=== PATIENT | male | born 1975 | race Asian ===

== ENCOUNTER 2019-06-07 20:37 | Inpatient (IN) | payer OTHER ==
[~2019-06-07] VITALS: Ht 180.3 cm; Wt 125.0 kg
[2019-06-07 22:40] VITALS: BP 125/59; PULSE 77; RESP 18
[2019-06-07] MEDS ORDERED: ATEN-122 PO (22:45)
[2019-06-07] MEDS ORDERED: METF500T PO (22:45)
[2019-06-07] MEDS ORDERED: AMLO-218 PO (22:45)
[2019-06-07] MEDS ORDERED: ASPI-903 PO (22:45)
[2019-06-07] MEDS ORDERED: SIMV40TA2 PO (22:45)
[2019-06-07 23:02] VITALS: Ht 180.3 cm; Wt 125.0 kg
[2019-06-08 01:52] VITALS: BP 124/58; PULSE 73; RESP 19
[2019-06-08] MEDS ORDERED: NACL 0.9% 3 ML SYG IV SCH (02:00)
[2019-06-08] MEDS ORDERED: GLUCAGON 1 MG INJ IM PRN (02:00)
[2019-06-08] MEDS ORDERED: GLUCOSE GEL 15 GRAM TUBE BUCCAL PRN (02:00)
[2019-06-08] MEDS ORDERED: METHYLPREDNISOLONE 125 MG INJ IV ONE (02:00)
[2019-06-08] MEDS ORDERED: DEXTROSE 50% 50 ML SYRINGE IV PRN ×2 (02:00)
[2019-06-08] MEDS ORDERED: ONDANSETRON 4 MG INJ IV PRN (02:00)
[2019-06-08] MEDS ORDERED: ALBUTEROL/IPRATROPIUM (NEB) 3 ML AMP HHN PRN (02:00)
[2019-06-08] MEDS ORDERED: GLUCOSE GEL 15 GRAM TUBE PO PRN ×2 (02:00)
[2019-06-08] MEDS: ACCU-CHEK XX SCH (02:00)
[2019-06-08] MEDS: DEXTROSE 5%-0.45% NACL 1,000 ML IV SCH ×3 (02:04→18:17)
[2019-06-08] MEDS: morphine 2 MG INJ IV PRN ×4 (04:09→21:28)
--- NOTE | 2019-06-08 05:38 | HP ---
Date/Time of Note Date/Time of Note DATE: 06/08/19 TIME: 05:33 Assessment/Plan VTE Prophylaxis SCD applied (from Nsg): Yes Pharmacological prophylaxis: NA/contraindicated Pharm contraindication: bleeding Lines/Catheters IV Catheter Type (from Nrsg): Saline Lock Assessment/Plan Assessment/Plan 1. Rectal bleeding -Possibly from ulcerative colitis. CT at the outside facility shows diffuse colitis -will give a dose of steroid -GI consult -FOBT -IV antibiotic 2. Elevated transaminases, most likely 2/2 alcoholic liver disease: Patient is aware of this from the past and actually has been seeing GI for this -CT with moderate fatty liver -Check hep panel -GI to comment on this 3. Hypertension: BP is in acceptable range 4. Diabetes: Insulin while in-house 5. Alcohol Abuse: "quit" a week ago. discussed importance of abstinence 6. Dyslipidemia: Hold statin given elevated liver enzymes Results 24hrs Laboratory Tests Test 06/08/19 02:11 Bedside Glucose 107 HPI/ROS Admit Date/Time Admit Date/Time Jun 07, 2019 at 22:36 Hx of Present Illness Patient is a 43-year-old male with a history of hypertension, type 2 diabetes, dyslipidemia, alcohol abuse, possible cirrhosis who initially presented to [facility] complaining of bright red blood per rectum. Patient was transferred to [facility] for insurance reasons. Symptoms been going on for a 1 day. He initially saw blood on tissue. on next BM, "it was all blood". Denied hematemesis. At the outside hospital, vitals were stable. Hemoglobin 11. AST 367, ALT 319, alk phos 226, albumin 0.8 with a total protein of 6.6, INR 1.2, creatinine 1.46, sodium 132. CT abdomen/pelvis shows diffuse colitis and a moderate fatty liver. He stopped drinking a week ago. PMH/Family/Social Past Medical History Medical History: diabetes, high cholesterol, hypertension Medications Current Medications Dextrose/Sodium Chloride 1,000 ml @ 120 mls/hr Q8H20M IV Last administered on 06/08/19at 02:04; Admin Dose 120 MLS/HR; Start 06/08/19 at 01:37 IV Flush (NS 3 ml) 3 ml PER PROTOCOL IV ; Start 06/08/19 at 02:00 Ondansetron HCl (Zofran Inj) 4 mg Q6H PRN IV NAUSEA/VOMITING; Start 06/08/19 at 02:00 Morphine Sulfate (morphine) 2 mg Q4H PRN IV .SEVERE PAIN 7-10 Last administered on 06/08/19at 04:09; Admin Dose 2 MG; Start 06/08/19 at 02:00 Pantoprazole (Protonix Iv) 40 mg DAILY@0600,1800 IV ; Start 06/08/19 at 06:00 Albuterol/ Ipratropium (Duoneb) 3 ml Q2H RESP THERAPY PRN HHN SHORTNESS OF BREATH; Start 06/08/19 at 02:00 Diagnostic Test (Pha) (Accu-Chek) 1 ea 02 XX ; Start 06/08/19 at 02:00 Insulin Aspart (Novolog Insulin Pen) NOVOLOG *MILD* ALGORITHM WITH MEALS BEDTIME SC ; Start 06/08/19 at 08:00 Miscellaneous Information 1 ea NOTE XX ; Start 06/08/19 at 02:00 Glucose (Glutose) 15 gm Q15M PRN PO DECREASED GLUCOSE; Start 06/08/19 at 02:00 Glucose (Glutose) 22.5 gm Q15M PRN PO DECREASED GLUCOSE; Start 06/08/19 at 02:00 Dextrose (D50w Syringe) 25 ml Q15M PRN IV DECREASED GLUCOSE; Start 06/08/19 at 02:00 Dextrose (D50w Syringe) 50 ml Q15M PRN IV DECREASED GLUCOSE; Start 06/08/19 at 02:00 Glucagon (Glucagen) 1 mg Q15M PRN IM DECREASED GLUCOSE; Start 06/08/19 at 02:00 Glucose (Glutose) 15 gm Q15M PRN BUCCAL DECREASED GLUCOSE; Start 06/08/19 at 02:00 Coded Allergies: No Known Allergies (Verified Allergy, Unknown, 06/08/19) Past Surgical History Past Surgical Hx: other (See HPI) Family History Significant Family History: no pertinent family hx Social History Alcohol Use: other Smoking Status: Former smoker Drug Use: none Exam/Review of Systems Vital Signs Vitals Vital Signs Date Temp Pulse Resp B/P (MAP) Pulse Ox O2 O2 Flow FiO2 Time Delivery Rate 06/08/19 98.1 73 19 124/58 96 01:52 (80) Intake and Output 06/07/19 06/07/19 06/08/19 1515:00 23:00 07:00 IntakeIntake Total 360 ml BalanceBalance 360 ml Exam Constitutional: alert, oriented, well developed Head: normocephalic, atraumatic Eyes: EOMI, PERRL Respiratory: clear to auscultation, normal air movement Cardiovascular: regular rate and rhythm, nl pulses Gastrointestinal: soft, non-tender Extremities: normal pulses GUDELIA ESPINOZA MD Jun 08, 2019 05:38
[2019-06-08] MEDS: PANTOPRAZOLE 40 MG INJ IV SCH ×2 (06:30→18:09)
[2019-06-08 08:00] VITALS: BP 135/66; PULSE 75; RESP 18
[2019-06-08] MEDS: INSULIN ASPART [NOVOLOG] 3 ML PEN SC SCH ×4 (08:27→21:00)
[2019-06-08] MEDS: PIPER-TAZO 3.375 GM IV (PMX) 100 ML IVPB SCH ×3 (10:34→21:28)
[2019-06-08 14:10] VITALS: BP 140/81; PULSE 77; RESP 18
--- NOTE | 2019-06-08 14:20 | PN ---
Date/Time of Note Date/Time of Note DATE: 06/08/19 TIME: 14:20 Assessment/Plan VTE Prophylaxis Risk score (from Ns)>0 risk: 1 SCD applied (from Ns): No SCD contraindicated: low risk/ambulating Pharmacological prophylaxis: NA/contraindicated Pharm contraindication: bleeding Lines/Catheters IV C[facility] Type [facility]from [facility] Peripheral IV Assessment/Plan Hospital Course 43-year-old male with a history of hypertension, type 2 diabetes, dyslipidemia, alcohol abuse, possible cirrhosis who initially presented to [facility] complaining of bright red blood per rectum. 1. Rectal bleeding -CT at the outside facility shows diffuse colitis, INR was 1.2 normal platelets -GI consult -FOBT -IV antibiotic 2. Elevated transaminases, most likely 2/2 alcoholic liver disease: Patient is aware of this from the past and actually has been seeing GI for this -Hepatitis with elevated transaminases and hyperbilirubinemia -CT with moderate fatty liver -Check hep panel -GI to comment on this 3. Hypertension: BP is in acceptable range 4. Diabetes: Insulin while in-house 5. Alcohol Abuse: "quit" a week ago. discussed importance of abstinence 6. Dyslipidemia: Hold statin given elevated liver enzymes 7. Chronic hypochromic microcytic anemia 8. Hypophosphatemia 9. Hypomagnesemia 10. Hypokalemia Plan: patient enroute to CT with contrast, f/u findings Continue abx await GI review and recs replete electrolytes further interventions per clinical course. Result Diagram: 06/08/19 0538 06/08/19 0538 Results 24hrs Laboratory Tests Test 06/08/19 02:11 06/08/19 05:38 06/08/19 08:03 06/08/19 12:28 Bedside Glucose 107 211 206 White Blood Count 6.4 Red Blood Count 4.57 L Hemoglobin 10.6 L Hematocrit 33.7 L Mean Corpuscular 73.7 L Volume Mean Corpuscular 23.2 L Hemoglobin Mean Corpuscular 31.5 L Hemoglobin Concent Red Cell 20.5 H Distribution Width Platelet Count 214 Mean Platelet 10.1 Volume Immature 0.500 H Granulocytes % Neutrophils % 88.6 H Lymphocytes % 8.1 L Monocytes % 2.3 Eosinophils % 0.2 Basophils % 0.3 Nucleated Red 0.0 Blood Cells % Immature 0.030 Granulocytes # Neutrophils # 5.7 Lymphocytes # 0.5 L Monocytes # 0.2 L Eosinophils # 0.0 Basophils # 0.0 Nucleated Red 0.0 Blood Cells # Sodium Level 136 Potassium Level 3.2 L Chloride Level 98 Carbon Dioxide 29 Level Anion Gap 9 Blood Urea 12 Nitrogen Creatinine 1.11 Est Glomerular > 60 Filtrat Rate mL/min Glucose Level 187 Hemoglobin A1c 6.8 H Calcium Level 7.8 L Phosphorus Level 1.8 L Magnesium Level 1.2 L Total Bilirubin 4.2 H Direct Bilirubin 2.90 H Indirect Bilirubin 1.3 H Aspartate Amino 322 H Transf (AST/SGOT) Alanine 278 H Aminotransferase ( ALT/SGPT) Alkaline 227 H Phosphatase Total Protein 6.7 Albumin 3.2 L Globulin 3.50 H Albumin/Globulin 0.91 Ratio Hepatitis B NEGATIVE Surface Antigen Hepatitis B INDETERMINATE Surface Antibody Hepatitis C NEGATIVE Antibody Subjective 24 Hr Interval Summary Free Text/Dictation no new issues, enroute to radiology Exam/Review of Systems Exam Vitals Vital Signs Date Temp Pulse Resp B/P (MAP) Pulse Ox O2 O2 Flow FiO2 Time Delivery Rate 06/08/19 98.0 77 18 140/81 97 Room Air 14:10 (100) Intake and Output 06/07/19 06/07/19 06/08/19 1515:00 23:00 07:00 IntakeIntake Total 360 ml BalanceBalance 360 ml Exam Constitutional: alert, oriented, well developed Head: normocephalic, atraumatic Eyes: EOMI, PERRL Respiratory: clear to auscultation, normal air movement Cardiovascular: regular rate and rhythm, nl pulses Gastrointestinal: soft, non-tender Extremities: normal pulses Results Results 24hrs Laboratory Tests Test 06/08/19 02:11 06/08/19 05:38 06/08/19 08:03 06/08/19 12:28 Bedside Glucose 107 211 206 White Blood Count 6.4 Red Blood Count 4.57 L Hemoglobin 10.6 L Hematocrit 33.7 L Mean Corpuscular 73.7 L Volume Mean Corpuscular 23.2 L Hemoglobin Mean Corpuscular 31.5 L Hemoglobin Concent Red Cell 20.5 H Distribution Width Platelet Count 214 Mean Platelet 10.1 Volume Immature 0.500 H Granulocytes % Neutrophils % 88.6 H Lymphocytes % 8.1 L Monocytes % 2.3 Eosinophils % 0.2 Basophils % 0.3 Nucleated Red 0.0 Blood Cells % Immature 0.030 Granulocytes # Neutrophils # 5.7 Lymphocytes # 0.5 L Monocytes # 0.2 L Eosinophils # 0.0 Basophils # 0.0 Nucleated Red 0.0 Blood Cells # Sodium Level 136 Potassium Level 3.2 L Chloride Level 98 Carbon Dioxide 29 Level Anion Gap 9 Blood Urea 12 Nitrogen Creatinine 1.11 Est Glomerular > 60 Filtrat Rate mL/min Glucose Level 187 Hemoglobin A1c 6.8 H Calcium Level 7.8 L Phosphorus Level 1.8 L Magnesium Level 1.2 L Total Bilirubin 4.2 H Direct Bilirubin 2.90 H Indirect Bilirubin 1.3 H Aspartate Amino 322 H Transf (AST/SGOT) Alanine 278 H Aminotransferase ( ALT/SGPT) Alkaline 227 H Phosphatase Total Protein 6.7 Albumin 3.2 L Globulin 3.50 H Albumin/Globulin 0.91 Ratio Hepatitis B NEGATIVE Surface Antigen Hepatitis B INDETERMINATE Surface Antibody Hepatitis C NEGATIVE Antibody Medications Medication Current Medications Dextrose/Sodium Chloride 1,000 ml @ 120 mls/hr Q8H20M IV Last administered on 06/08/19at 10:34; Admin Dose 120 MLS/HR; Start 06/08/19 at 01:37 IV Flush (NS 3 ml) 3 ml PER PROTOCOL IV ; Start 06/08/19 at 02:00 Ondansetron HCl (Zofran Inj) 4 mg Q6H PRN IV NAUSEA/VOMITING; Start 06/08/19 at 02:00 Morphine Sulfate (morphine) 2 mg Q4H PRN IV .SEVERE PAIN 7-10 Last administered on 06/08/19at 12:37; Admin Dose 2 MG; Start 06/08/19 at 02:00 Pantoprazole (Protonix Iv) 40 mg DAILY@0600,1800 IV Last administered on 06/08/19at 06:30; Admin Dose 40 MG; Start 06/08/19 at 06:00 Albuterol/ Ipratropium (Duoneb) 3 ml Q2H RESP THERAPY PRN HHN SHORTNESS OF BREATH; Start 06/08/19 at 02:00 Diagnostic Test (Pha) (Accu-Chek) 1 ea 02 XX ; Start 06/08/19 at 02:00 Insulin Aspart (Novolog Insulin Pen) NOVOLOG *MILD* ALGORITHM WITH MEALS BEDTIME SC Last administered on 06/08/19at 12:39; Admin Dose 2 UNIT; Start 06/08/19 at 08:00 Miscellaneous Information 1 ea NOTE XX ; Start 06/08/19 at 02:00 Glucose (Glutose) 15 gm Q15M PRN PO DECREASED GLUCOSE; Start 06/08/19 at 02:00 Glucose (Glutose) 22.5 gm Q15M PRN PO DECREASED GLUCOSE; Start 06/08/19 at 02:00 Dextrose (D50w Syringe) 25 ml Q15M PRN IV DECREASED GLUCOSE; Start 06/08/19 at 02:00 Dextrose (D50w Syringe) 50 ml Q15M PRN IV DECREASED GLUCOSE; Start 06/08/19 at 02:00 Glucagon (Glucagen) 1 mg Q15M PRN IM DECREASED GLUCOSE; Start 06/08/19 at 02:00 Glucose (Glutose) 15 gm Q15M PRN BUCCAL DECREASED GLUCOSE; Start 06/08/19 at 02:00 Piperacillin Sod/ Tazobactam Sod 100 ml @ 200 mls/hr Q6 IVPB Last administered on 06/08/19at 10:34; Admin Dose 200 MLS/HR; Start 06/08/19 at 09:00 Magnesium Sulfate 100 ml @ 25 mls/hr ONCE ONCE IVPB ; Start 06/08/19 at 14:30; Stop 06/08/19 at 18:29 Potassium Phosphate 20 meq/ Sodium Chloride 254.5455 ml @ 63.636 m... ONCE ONCE IVPB ; Start 06/08/19 at 14:30; Stop 06/08/19 at 18:29 TALA AMADO Jun 08, 2019 14:20
[2019-06-08] MEDS ORDERED: SOD CHLORIDE 0.9% 100 ML ONE (14:24)
[2019-06-08] MEDS ORDERED: IODIXANOL LOCM 100 ML BTL ONE (14:24)
[2019-06-08] MEDS ORDERED: MAGNESIUM SULFATE 4 GM/100 ML 100 ML IVPB ONE (14:30)
[2019-06-08] MEDS ORDERED: POTASSIUM PHOSPHATE 20 MEQ in SOD CHLORIDE 0.9% 250 ML IVPB ONE (14:30)
[2019-06-08 20:10] VITALS: BP 135/80; PULSE 70; RESP 18
[2019-06-09] MEDS: ACCU-CHEK XX SCH (01:38)
[2019-06-09] MEDS: DEXTROSE 5%-0.45% NACL 1,000 ML IV SCH ×3 (01:39→13:51)
[2019-06-09 01:50] VITALS: BP 135/68; PULSE 66; RESP 18
[2019-06-09] MEDS: PIPER-TAZO 3.375 GM IV (PMX) 100 ML IVPB SCH ×6 (02:33→23:33)
[2019-06-09] MEDS: morphine 2 MG INJ IV PRN ×2 (02:38→16:16)
[2019-06-09] MEDS: PANTOPRAZOLE 40 MG INJ IV SCH ×2 (06:05→18:19)
[2019-06-09 07:30] VITALS: BP 122/68; PULSE 73; RESP 18
[2019-06-09] MEDS: INSULIN ASPART [NOVOLOG] 3 ML PEN SC SCH ×5 (09:45→23:41)
[2019-06-09] MEDS ORDERED: BISACODYL (EC) 5 MG TAB PO ONE ×2 (11:30→12:00)
--- NOTE | 2019-06-09 11:31 | CONS ---
Assessment/Plan Assessment/Plan Hospital Course (Demo Recall) Summary Assessment and Plan: Assessment: Hematochezia Transaminitis with direct hyperbilirubinemia -Likely alcoholic hepatitis will order PT/INR-to assess discriminant function History of excessive alcohol use 3-4 shots per day x10 years -Alcoholic beverage was Saturday06/06/19 HTN Dyslipidemia Diabetes mellitus Plan: MRCP-rule out common bile duct obstruction versus hepatocellular disease Clear liquid diet today N.p.o. after midnight EGD/colonoscopy tomorrow Endoscopy - risks/benefits/alternatives/indications of procedure and sedation/anesthesia discussed with patient who states understanding and gives informed consent to proceed. Patient seen in collaboration with Dr. Hedrick CC: OLIVIA HEDRICK MD ; Consultation Date/Type/Reason Admit Date/Time Jun 07, 2019 at 22:36 Date of Consultation: Jun 09, 2019 Type of Consult GI Reason for Consultation Transaminitis with direct hyperbilirubinemia and hematochezia Date/Time of Note DATE: 06/09/19 TIME: 11:16 Hx of Present Illness A 43-year-old male with past medical history of hypertension, diabetes mellitus, dyslipidemia, excessive alcohol use 3-4 shots per day x10+ years and to to an outside hospital with complaints of hematochezia. He denies nausea/vomiting, hematemesis, or melena. There is no epigastric or other abdominal pain patient does complain of some pyrosis. Labs obtained at outside facility show a microcytic anemia, mild hemoglobin 11.1 platelet count of 255 normal WBC of 6.95. Imaging was obtained at the outside facility CT abdomen pelvis without contrast shows diffuse colitis no other acute abnormality of the abdomen or pelvis, moderate fatty liver, mild hepatomegaly. Patient states he previously had a colonoscopy about 2 years ago believes it was normal. He does note history of elevated LFTs and periodically sees Dr. Cj Wang -[employer]. He was transferred to [facility] after being deemed stable for insurance reasons. Here labs were obtained hemoglobin continues to trend down hemoglobin this morning noted to be 9.8 with MCV of 74.9 and MCH of 23.4. Serology was obtained patient is negative for hepatitis B surface antigen, hepatitis B surface antibody is indeterminate and is negative for hepatitis C antibody additionally stool for OB is positive discussed plan for repeat colonoscopy given underlying liver disease we will proceed with EGD as well to rule out esophageal varices versus other. I reviewed risk/benefits age and procedure patient verbalized understanding is agreeable. Review of Systems: A 12 system, review was conducted and is negative except as noted in the HPI or here. Past Medical History Medical History: diabetes, high cholesterol, hypertension Home Meds Reported Medications Metformin Hcl (Glucophage) 500 Mg Tablet, 500 MG PO WITH MEALS, #90 TAB 06/07/19 Simvastatin* (Zocor*) 40 Mg Tablet, 40 MG PO QHS, #30 TAB 06/07/19 Atenolol* (Tenormin*) 50 Mg Tablet, 50 MG PO DAILY, #30 TAB 06/07/19 Amlodipine Besylate* (Norvasc*) 10 Mg Tablet, 10 MG PO DAILY, TAB 06/07/19 Aspirin* (Aspirin* Chew) 81 Mg Tab.chew, 81 MG PO DAILY, TAB.CHEW 06/07/19 Medications Current Medications Dextrose/Sodium Chloride 1,000 ml @ 120 mls/hr Q8H20M IV Last administered on 06/08/19at 10:34; Admin Dose 120 MLS/HR; Start 06/08/19 at 01:37 IV Flush (NS 3 ml) 3 ml PER PROTOCOL IV ; Start 06/08/19 at 02:00 Ondansetron HCl (Zofran Inj) 4 mg Q6H PRN IV NAUSEA/VOMITING; Start 06/08/19 at 02:00 Morphine Sulfate (morphine) 2 mg Q4H PRN IV .SEVERE PAIN 7-10 Last administered on 06/09/19at 02:38; Admin Dose 2 MG; Start 06/08/19 at 02:00 Pantoprazole (Protonix Iv) 40 mg DAILY@0600,1800 IV Last administered on 06/09/19at 06:05; Admin Dose 40 MG; Start 06/08/19 at 06:00 Albuterol/ Ipratropium (Duoneb) 3 ml Q2H RESP THERAPY PRN HHN SHORTNESS OF BREATH; Start 06/08/19 at 02:00 Diagnostic Test (Pha) (Accu-Chek) 1 ea 02 XX ; Start 06/08/19 at 02:00 Insulin Aspart (Novolog Insulin Pen) NOVOLOG *MILD* ALGORITHM WITH MEALS BEDTIME SC Last administered on 06/08/19at 18:09; Admin Dose 1 UNIT; Start 06/08/19 at 08:00 Miscellaneous Information 1 ea NOTE XX ; Start 06/08/19 at 02:00 Glucose (Glutose) 15 gm Q15M PRN PO DECREASED GLUCOSE; Start 06/08/19 at 02:00 Glucose (Glutose) 22.5 gm Q15M PRN PO DECREASED GLUCOSE; Start 06/08/19 at 02:00 Dextrose (D50w Syringe) 25 ml Q15M PRN IV DECREASED GLUCOSE; Start 06/08/19 at 02:00 Dextrose (D50w Syringe) 50 ml Q15M PRN IV DECREASED GLUCOSE; Start 06/08/19 at 02:00 Glucagon (Glucagen) 1 mg Q15M PRN IM DECREASED GLUCOSE; Start 06/08/19 at 02:00 Glucose (Glutose) 15 gm Q15M PRN BUCCAL DECREASED GLUCOSE; Start 06/08/19 at 02:00 Piperacillin Sod/ Tazobactam Sod 100 ml @ 200 mls/hr Q6H IVPB Last administered on 06/09/19at 09:39; Admin Dose 200 MLS/HR; Start 06/09/19 at 03:00 Allergies: Coded Allergies: No Known Allergies (Verified Allergy, Unknown, 06/08/19) Past Surgical History Past Surgical Hx: other (See HPI) Social History Alcohol Use: other Smoking Status: Former smoker Drug Use: none Exam/Review of Systems Exam Vitals Vital Signs Date Temp Pulse Resp B/P (MAP) Pulse Ox O2 O2 Flow FiO2 Time Delivery Rate 06/09/19 98.4 73 18 122/68 98 07:30 (86) 06/08/19 30 22:01 06/08/19 Room Air 14:10 Intake and Output 06/08/19 06/08/19 06/09/19 1515:00 23:00 07:00 IntakeIntake Total 740 ml 200 ml 254.55 ml BalanceBalance 740 ml 200 ml 254.55 ml Exam PHYSICAL EXAMINATION: GENERAL: Alert & oriented x 3, in no acute distress SKIN: No lesions HEAD: Normocephalic, atraumatic, no tenderness. EYES: Pupils equal reactive to light and accommodation, no discharge. EARS/NOSE AND THROAT: Ears normal. NECK: Supple, no masses. CHEST: Inspection within normal limits. CARDIOVASCULAR: Heart: Regular rate and rhythm RESPIRATORY: Lungs clear to auscultation and percussion, no wheezing, no rubs GASTROINTESTINAL AND LIVER: Abdomen: Soft, non tenderness, non-distended, no organomegaly,normoactive bowel sounds. Rectal: Deferred. EXTREMITIES: No cyanosis, clubbing or edema. Results Result Diagram: 06/09/19 0605 06/09/19 0604 Results 24hrs Laboratory Tests Test 06/08/19 12:28 06/08/19 18:04 06/08/19 21:39 06/08/19 22:00 Bedside Glucose 206 165 153 Stool Occult Blood POSITIVE Test 06/09/19 01:34 06/09/19 06:04 06/09/19 06:05 06/09/19 09:44 Bedside Glucose 127 123 119 Sodium Level 140 Potassium Level 3.3 L Chloride Level 102 Carbon Dioxide Level 29 Anion Gap 9 Blood Urea Nitrogen 7 Creatinine 0.95 Est Glomerular > 60 Filtrat Rate mL/min Glucose Level 115 # Calcium Level 8.1 L Phosphorus Level 3.7 Magnesium Level 1.9 Triglycerides Level 391 H Cholesterol Level 249 H LDL Cholesterol, 155 Calculated HDL Cholesterol 16 L Cholesterol/HDL 15.5 Ratio White Blood Count 9.3 # Red Blood Count 4.19 L Hemoglobin 9.8 L Hematocrit 31.4 L Mean Corpuscular 74.9 L Volume Mean Corpuscular 23.4 L Hemoglobin Mean Corpuscular 31.2 L Hemoglobin Concent Red Cell 21.0 H Distribution Width Platelet Count 194 Mean Platelet Volume 10.1 Immature 0.600 H Granulocytes % Neutrophils % 79.9 H Lymphocytes % 12.9 L Monocytes % 6.5 Eosinophils % 0.0 Basophils % 0.1 Nucleated Red Blood 0.0 Cells % Immature 0.060 H Granulocytes # Neutrophils # 7.5 Lymphocytes # 1.2 Monocytes # 0.6 Eosinophils # 0.0 Basophils # 0.0 Nucleated Red Blood 0.0 Cells # Iron Level 110 Total Iron Binding 338 Capacity Percent Iron 33 Saturation Medications Medication Current Medications Dextrose/Sodium Chloride 1,000 ml @ 120 mls/hr Q8H20M IV Last administered on 06/08/19at 10:34; Admin Dose 120 MLS/HR; Start 06/08/19 at 01:37 IV Flush (NS 3 ml) 3 ml PER PROTOCOL IV ; Start 06/08/19 at 02:00 Ondansetron HCl (Zofran Inj) 4 mg Q6H PRN IV NAUSEA/VOMITING; Start 06/08/19 at 02:00 Morphine Sulfate (morphine) 2 mg Q4H PRN IV .SEVERE PAIN 7-10 Last administered on 06/09/19at 02:38; Admin Dose 2 MG; Start 06/08/19 at 02:00 Pantoprazole (Protonix Iv) 40 mg DAILY@0600,1800 IV Last administered on 06/09/19at 06:05; Admin Dose 40 MG; Start 06/08/19 at 06:00 Albuterol/ Ipratropium (Duoneb) 3 ml Q2H RESP THERAPY PRN HHN SHORTNESS OF BREATH; Start 06/08/19 at 02:00 Diagnostic Test (Pha) (Accu-Chek) 1 ea 02 XX ; Start 06/08/19 at 02:00 Insulin Aspart (Novolog Insulin Pen) NOVOLOG *MILD* ALGORITHM WITH MEALS BEDTIME SC Last administered on 06/08/19at 18:09; Admin Dose 1 UNIT; Start 06/08/19 at 08:00 Miscellaneous Information 1 ea NOTE XX ; Start 06/08/19 at 02:00 Glucose (Glutose) 15 gm Q15M PRN PO DECREASED GLUCOSE; Start 06/08/19 at 02:00 Glucose (Glutose) 22.5 gm Q15M PRN PO DECREASED GLUCOSE; Start 06/08/19 at 02:00 Dextrose (D50w Syringe) 25 ml Q15M PRN IV DECREASED GLUCOSE; Start 06/08/19 at 02:00 Dextrose (D50w Syringe) 50 ml Q15M PRN IV DECREASED GLUCOSE; Start 06/08/19 at 02:00 Glucagon (Glucagen) 1 mg Q15M PRN IM DECREASED GLUCOSE; Start 06/08/19 at 02:00 Glucose (Glutose) 15 gm Q15M PRN BUCCAL DECREASED GLUCOSE; Start 06/08/19 at 02:00 Piperacillin Sod/ Tazobactam Sod 100 ml @ 200 mls/hr Q6H IVPB Last administered on 06/09/19at 09:39; Admin Dose 200 MLS/HR; Start 06/09/19 at 03:00 ELEANOR CURRY Jun 09, 2019 11:26
[2019-06-09 14:29] VITALS: BP 145/75; PULSE 71; RESP 18
--- NOTE | 2019-06-09 16:29 | PN ---
Date/Time of Note Date/Time of Note DATE: 06/09/19 TIME: 16:17 Assessment/Plan VTE Prophylaxis Risk score (from Nsg)>0 risk: 3 Pharmacological prophylaxis: NA/contraindicated Pharm contraindication: bleeding Lines/Catheters IV Catheter Type (from Nrsg): Peripheral IV Assessment/Plan Hospital Course 43-year-old male with a history of hypertension, type 2 diabetes, dyslipidemia, alcohol abuse, possible cirrhosis who initially presented to [facility] complaining of bright red blood per rectum. 1. Rectal bleeding / Hematochezia -Initial Ct concerning for colitis, repeat here shows diffuse lymphadenopathy but normal bowels -planned for colonoscopy tomorrow -appreciate GI input, CEA? 2. Elevated transaminases, most likely 2/2 alcoholic liver disease: Patient is aware of this from the past and actually has been seeing GI for this -Hepatitis with elevated transaminases and hyperbilirubinemia -CT with moderate fatty liver, also seen on [facility] concerning also for hepatocellular disease -Planned for MRCP per GI 3. Hypertension: BP is in acceptable range 4. Diabetes: Insulin while in-house 5. Alcohol Abuse: "quit" a week ago. discussed importance of abstinence, reinforced 6. Dyslipidemia: Hold statin given elevated liver enzymes 7. Chronic hypochromic microcytic anemia Plan: Continue abx appreciate GI review and recs replete electrolytes further interventions per clinical course. Result Diagram: 06/09/19 0605 06/09/19 0604 Results 24hrs Laboratory Tests Test 06/08/19 18:04 06/08/19 21:39 06/08/19 22:00 06/09/19 01:34 Bedside Glucose 165 153 127 Stool Occult Blood POSITIVE Test 06/09/19 06:04 06/09/19 06:05 06/09/19 09:44 06/09/19 12:33 Sodium Level 140 Potassium Level 3.3 L Chloride Level 102 Carbon Dioxide Level 29 Anion Gap 9 Blood Urea Nitrogen 7 Creatinine 0.95 Est Glomerular > 60 Filtrat Rate mL/min Glucose Level 115 # Bedside Glucose 123 119 Calcium Level 8.1 L Phosphorus Level 3.7 Magnesium Level 1.9 Triglycerides Level 391 H Cholesterol Level 249 H LDL Cholesterol, 155 Calculated HDL Cholesterol 16 L Cholesterol/HDL 15.5 Ratio White Blood Count 9.3 # Red Blood Count 4.19 L Hemoglobin 9.8 L Hematocrit 31.4 L Mean Corpuscular 74.9 L Volume Mean Corpuscular 23.4 L Hemoglobin Mean Corpuscular 31.2 L Hemoglobin Concent Red Cell 21.0 H Distribution Width Platelet Count 194 Mean Platelet Volume 10.1 Immature 0.600 H Granulocytes % Neutrophils % 79.9 H Lymphocytes % 12.9 L Monocytes % 6.5 Eosinophils % 0.0 Basophils % 0.1 Nucleated Red Blood 0.0 Cells % Immature 0.060 H Granulocytes # Neutrophils # 7.5 Lymphocytes # 1.2 Monocytes # 0.6 Eosinophils # 0.0 Basophils # 0.0 Nucleated Red Blood 0.0 Cells # Iron Level 110 Total Iron Binding 338 Capacity Percent Iron 33 Saturation Prothrombin Time 14.6 Prothrombin Time 1.1 Ratio INR International 1.13 Normalized Ratio Test 06/09/19 14:02 Bedside Glucose 109 Subjective 24 Hr Interval Summary Free Text/Dictation no new complaints, Exam/Review of Systems Exam Vitals Vital Signs Date Temp Pulse Resp B/P (MAP) Pulse Ox O2 O2 Flow FiO2 Time Delivery Rate 06/09/19 98.5 71 18 145/75 95 14:29 (98) 06/08/19 30 22:01 06/08/19 Room Air 14:10 Intake and Output 06/08/19 06/08/19 06/09/19 1515:00 23:00 07:00 IntakeIntake Total 740 ml 200 ml 254.55 ml BalanceBalance 740 ml 200 ml 254.55 ml Exam Constitutional: alert, oriented Head: atraumatic, normocephalic Neck: non-tender, supple Respiratory: clear to auscultation Cardiovascular: regular rate and rhythm Gastrointestinal: S/ NT / ND / +BS Extremities: no edema, good radial pulses Results Results 24hrs Laboratory Tests Test 06/08/19 18:04 06/08/19 21:39 06/08/19 22:00 06/09/19 01:34 Bedside Glucose 165 153 127 Stool Occult Blood POSITIVE Test 06/09/19 06:04 06/09/19 06:05 06/09/19 09:44 06/09/19 12:33 Sodium Level 140 Potassium Level 3.3 L Chloride Level 102 Carbon Dioxide Level 29 Anion Gap 9 Blood Urea Nitrogen 7 Creatinine 0.95 Est Glomerular > 60 Filtrat Rate mL/min Glucose Level 115 # Bedside Glucose 123 119 Calcium Level 8.1 L Phosphorus Level 3.7 Magnesium Level 1.9 Triglycerides Level 391 H Cholesterol Level 249 H LDL Cholesterol, 155 Calculated HDL Cholesterol 16 L Cholesterol/HDL 15.5 Ratio White Blood Count 9.3 # Red Blood Count 4.19 L Hemoglobin 9.8 L Hematocrit 31.4 L Mean Corpuscular 74.9 L Volume Mean Corpuscular 23.4 L Hemoglobin Mean Corpuscular 31.2 L Hemoglobin Concent Red Cell 21.0 H Distribution Width Platelet Count 194 Mean Platelet Volume 10.1 Immature 0.600 H Granulocytes % Neutrophils % 79.9 H Lymphocytes % 12.9 L Monocytes % 6.5 Eosinophils % 0.0 Basophils % 0.1 Nucleated Red Blood 0.0 Cells % Immature 0.060 H Granulocytes # Neutrophils # 7.5 Lymphocytes # 1.2 Monocytes # 0.6 Eosinophils # 0.0 Basophils # 0.0 Nucleated Red Blood 0.0 Cells # Iron Level 110 Total Iron Binding 338 Capacity Percent Iron 33 Saturation Prothrombin Time 14.6 Prothrombin Time 1.1 Ratio INR International 1.13 Normalized Ratio Test 06/09/19 14:02 Bedside Glucose 109 Imaging Imaging PROCEDURE: CT Abdomen and Pelvis with contrast. CLINICAL INDICATION: Abdomen and pelvis pain. TECHNIQUE: CT scan of the abdomen and pelvis with contrast was performed. The patient was scanned following the uncomplicated intravenous administration of 100 ml of Omnipaque-300. Coronal and sagittal reformatted images were obtained from the axial source images. Images were reviewed on a high-resolution PACS workstation. Total exam DLP is 1556 mGy-cm. CTDIvol is 23 mGy. One or more of the following dose reduction techniques were used: Automated exposure control, adjustment of the mA and/or kV according to patient size, use of iterative reconstruction technique. DICOM images are available. COMPARISON: None. FINDINGS: there is bilateral lung base atelectasis versus scarring. There is no pleural effusion there is hepatic steatosis. There is no focal hepatic lesion. The gallbladder and bile ducts are normal. The spleen is normal in size. There is no focal splenic lesion. Both adrenals are normal with no enlargement or mass. The pancreas is unremarkable with no mass or evidence of pancreatitis. Both kidneys demonstrate normal contrast enhancement. there is a 1.3 cm hypodense lesion arising from the lower pole of the right kidney. The abdominal aorta is not dilated. There are multiple shotty sub centimeter retroperitoneal lymph nodes. There is no pelvic lymphadenopathy or mass. The bladder and distal ureters are normal. The periappendiceal region is unremarkable with no evidence of appendicitis. The bowel and mesentery are normal. There is no free fluid or free gas. There are degenerative changes of the spine. There is bilateral groin lymphadenopathy. An index left groin lymph node measures 1.5 cm. There are patulous fat containing bilateral inguinal rings. There is mild anasarca. IMPRESSION: 1. Hepatic steatosis. 2. 1.3 cm hypodense lesion arising from the lower pole of the right kidney. This may represent a cyst. However, follow-up is recommended to exclude neoplasm. 3. There are multiple nonspecific shotty sub centimeter retroperitoneal lymph nodes. 4. There is bilateral groin lymphadenopathy. An index left groin lymph node measures 1.5 cm. Follow-up to exclude infectious, inflammatory, or neoplastic process. 5. There are patulous fat containing bilateral inguinal rings. 6. There is mild anasarca. RPTAT: QQ Physician Steve Date Time Electronically viewed and signed by Physician Steve on 06/08/2019 16:10 RD/ CC: GUDELIA ESPINOZA MD [id number] Medications Medication Current Medications Dextrose/Sodium Chloride 1,000 ml @ 120 mls/hr Q8H20M IV Last administered on 06/09/19at 13:51; Admin Dose 120 MLS/HR; Start 06/08/19 at 01:37 IV Flush (NS 3 ml) 3 ml PER PROTOCOL IV ; Start 06/08/19 at 02:00 Ondansetron HCl (Zofran Inj) 4 mg Q6H PRN IV NAUSEA/VOMITING; Start 06/08/19 at 02:00 Morphine Sulfate (morphine) 2 mg Q4H PRN IV .SEVERE PAIN 7-10 Last administered on 06/09/19at 16:16; Admin Dose 2 MG; Start 06/08/19 at 02:00 Pantoprazole (Protonix Iv) 40 mg DAILY@0600,1800 IV Last administered on 06/09/19at 06:05; Admin Dose 40 MG; Start 06/08/19 at 06:00 Albuterol/ Ipratropium (Duoneb) 3 ml Q2H RESP THERAPY PRN HHN SHORTNESS OF BREATH; Start 06/08/19 at 02:00 Diagnostic Test (Pha) (Accu-Chek) 1 ea 02 XX ; Start 06/08/19 at 02:00 Insulin Aspart (Novolog Insulin Pen) NOVOLOG *MILD* ALGORITHM WITH MEALS BEDTIME SC Last administered on 06/08/19at 18:09; Admin Dose 1 UNIT; Start 06/08/19 at 08:00 Miscellaneous Information 1 ea NOTE XX ; Start 06/08/19 at 02:00 Glucose (Glutose) 15 gm Q15M PRN PO DECREASED GLUCOSE; Start 06/08/19 at 02:00 Glucose (Glutose) 22.5 gm Q15M PRN PO DECREASED GLUCOSE; Start 06/08/19 at 02:00 Dextrose (D50w Syringe) 25 ml Q15M PRN IV DECREASED GLUCOSE; Start 06/08/19 at 02:00 Dextrose (D50w Syringe) 50 ml Q15M PRN IV DECREASED GLUCOSE; Start 06/08/19 at 02:00 Glucagon (Glucagen) 1 mg Q15M PRN IM DECREASED GLUCOSE; Start 06/08/19 at 02:00 Glucose (Glutose) 15 gm Q15M PRN BUCCAL DECREASED GLUCOSE; Start 06/08/19 at 02:00 Piperacillin Sod/ Tazobactam Sod 100 ml @ 200 mls/hr Q6H IVPB Last administered on 06/09/19at 15:33; Admin Dose 200 MLS/HR; Start 06/09/19 at 03:00 Magnesium Citrate (Citroma) 300 ml ONCE ONCE PO ; Start 06/09/19 at 17:30; Stop 06/09/19 at 17:31 Polyethylene Glycol (Miralax) 119 gm ONCE ONCE PO ; Start 06/09/19 at 18:30; Stop 06/09/19 at 18:31 Polyethylene Glycol (Miralax) 119 gm 2ND DOSE (GI PREP) ONCE PO ; Start 06/10/19 at 06:00; Stop 06/10/19 at 06:01 Bisacodyl (Dulcolax) 10 mg 2ND DOSE (GI PREP) ONCE PO ; Start 06/10/19 at 08:00; Stop 06/10/19 at 08:01 TALA AMADO Jun 09, 2019 16:28
[2019-06-09] MEDS ORDERED: POTASSIUM CHLORIDE 100 ML IVPB ONE (16:30)
[2019-06-09] MEDS ORDERED: MAGNESIUM CITRATE 300 ML BTL PO ONE ×2 (17:30)
--- NOTE | 2019-06-09 17:32 | PREAC ---
Date/Time of Note Date/Time of Note DATE: 06/09/19 TIME: 17:31 Anesthesia Eval and Record Evaluation Time Pre-Procedure Interview DATE: 06/09/19 TIME: 17:31 Age 43 Sex male NPO: 8 hrs Preoperative diagnosis Rectal bleeding Planned procedure EGD / colonoscopy Past Medical History Past Medical History: Includes Cardio: HTN, Dyslipidemia Endo: Diabetes Hepatic: Alcohol abuse GI: Morbid obesity Surgery & Anesthesia Issues No known issue Meds Anticoagulation: No Beta Janna within 24 hr: No Reason Beta Janna not given: Pt. not on B-Janna Reported Medications Metformin Hcl (Glucophage) 500 Mg Tablet, 500 MG PO WITH MEALS, #90 TAB 06/07/19 Simvastatin* (Zocor*) 40 Mg Tablet, 40 MG PO QHS, #30 TAB 06/07/19 Atenolol* (Tenormin*) 50 Mg Tablet, 50 MG PO DAILY, #30 TAB 06/07/19 Amlodipine Besylate* (Norvasc*) 10 Mg Tablet, 10 MG PO DAILY, TAB 06/07/19 Aspirin* (Aspirin* Chew) 81 Mg Tab.chew, 81 MG PO DAILY, TAB.CHEW 06/07/19 Current Medications Dextrose/Sodium Chloride 1,000 ml @ 120 mls/hr Q8H20M IV Last administered on 06/09/19at 13:51; Admin Dose 120 MLS/HR; Start 06/08/19 at 01:37 IV Flush (NS 3 ml) 3 ml PER PROTOCOL IV ; Start 06/08/19 at 02:00 Ondansetron HCl (Zofran Inj) 4 mg Q6H PRN IV NAUSEA/VOMITING; Start 06/08/19 at 02:00 Morphine Sulfate (morphine) 2 mg Q4H PRN IV .SEVERE PAIN 7-10 Last administered on 06/09/19at 16:16; Admin Dose 2 MG; Start 06/08/19 at 02:00 Pantoprazole (Protonix Iv) 40 mg DAILY@0600,1800 IV Last administered on 06/09/19at 06:05; Admin Dose 40 MG; Start 06/08/19 at 06:00 Albuterol/ Ipratropium (Duoneb) 3 ml Q2H RESP THERAPY PRN HHN SHORTNESS OF BREATH; Start 06/08/19 at 02:00 Diagnostic Test (Pha) (Accu-Chek) 1 ea 02 XX ; Start 06/08/19 at 02:00 Insulin Aspart (Novolog Insulin Pen) NOVOLOG *MILD* ALGORITHM WITH MEALS BEDTIME SC Last administered on 06/08/19at 18:09; Admin Dose 1 UNIT; Start 06/08/19 at 08:00 Miscellaneous Information 1 ea NOTE XX ; Start 06/08/19 at 02:00 Glucose (Glutose) 15 gm Q15M PRN PO DECREASED GLUCOSE; Start 06/08/19 at 02:00 Glucose (Glutose) 22.5 gm Q15M PRN PO DECREASED GLUCOSE; Start 06/08/19 at 02:00 Dextrose (D50w Syringe) 25 ml Q15M PRN IV DECREASED GLUCOSE; Start 06/08/19 at 02:00 Dextrose (D50w Syringe) 50 ml Q15M PRN IV DECREASED GLUCOSE; Start 06/08/19 at 02:00 Glucagon (Glucagen) 1 mg Q15M PRN IM DECREASED GLUCOSE; Start 06/08/19 at 02:00 Glucose (Glutose) 15 gm Q15M PRN BUCCAL DECREASED GLUCOSE; Start 06/08/19 at 02:00 Piperacillin Sod/ Tazobactam Sod 100 ml @ 200 mls/hr Q6H IVPB Last administered on 06/09/19at 15:33; Admin Dose 200 MLS/HR; Start 06/09/19 at 03:00 Magnesium Citrate (Citroma) 300 ml ONCE ONCE PO ; Start 06/09/19 at 17:30; Sto p 06/09/19 at 17:31 Polyethylene Glycol (Miralax) 119 gm ONCE ONCE PO ; Start 06/09/19 at 18:30; Stop 06/09/19 at 18:31 Polyethylene Glycol (Miralax) 119 gm 2ND DOSE (GI PREP) ONCE PO ; Start 06/10/19 at 06:00; Stop 06/10/19 at 06:01 Bisacodyl (Dulcolax) 10 mg 2ND DOSE (GI PREP) ONCE PO ; Start 06/10/19 at 08:00; Stop 06/10/19 at 08:01 Potassium Chloride 100 ml @ 50 mls/hr ONCE ONCE IVPB ; Start 06/09/19 at 16:30; Stop 06/09/19 at 18:29 Meds reviewed: Yes Allergies Coded Allergies: No Known Allergies (Verified Allergy, Unknown, 06/08/19) Allergies Reviewed: Yes Labs/Studies Labs Reviewed: Reviewed by anesthesiologist Result Diagram: 06/09/19 0605 06/09/19 0604 Laboratory Tests 06/09/19 06:04 06/09/19 06:05 test: N/A Pre-procedure Exam Last vitals Vital Signs Date Temp Pulse Resp B/P (MAP) Pulse Ox O2 O2 Flow FiO2 Time Delivery Rate 06/09/19 98.5 71 18 145/75 95 14:29 (98) 06/08/19 30 22:01 06/08/19 Room Air 14:10 Airway: Adequate mouth opening Mallampati: Mallampati II Teeth: Normal Lung: Normal Heart: Normal ASA Physical Status ASA physical status: 3 Emergency: None Planned Anesthetic General/MAC: MAC Pre-operative Attestations Prior to commencing anesthesia and surgery, the patient was re-evaluated, there was verification of: *The patient's identity *The results of appropriate recent lab work and preoperative vital signs *The above evaluation not changing prior to induction *Anesthetic plan, risk benefits, alternative and complications discussed with patient/family; questions answered; patient/family understands, accepts and wishes to proceed. YULY ONEILL Jun 09, 2019 17:32
[2019-06-09] MEDS: POLYETHYLENE GLYCOL 3350 119 GM POWDER PO ONE (18:25)
[2019-06-09] MEDS ORDERED: POLYETHYLENE GLYCOL 3350 119 GM POWDER PO ONE ×2 (18:30)
[2019-06-09 20:22] VITALS: BP 137/77; PULSE 67; RESP 18
[2019-06-09] MEDS ORDERED: POTASSIUM CHLORIDE (SR) 20 MEQ TAB PO STA (23:10)
[2019-06-10] VITALS (8 sets, daily range): BP systolic 103–151; BP diastolic 51–93; PULSE 63–80; RESP 16–32
[2019-06-10] MEDS: ACCU-CHEK XX SCH (01:05)
[2019-06-10] MEDS: PIPER-TAZO 3.375 GM IV (PMX) 100 ML IVPB SCH ×4 (02:33→20:48)
[2019-06-10] MEDS: DEXTROSE 5%-0.45% NACL 1,000 ML IV SCH ×2 (02:33→11:41)
[2019-06-10] MEDS: INSULIN ASPART [NOVOLOG] 3 ML PEN SC SCH ×5 (04:13→20:48)
[2019-06-10] MEDS: PANTOPRAZOLE 40 MG INJ IV SCH ×2 (05:18→18:08)
[2019-06-10] MEDS: POLYETHYLENE GLYCOL 3350 119 GM POWDER PO ONE (05:27)
[2019-06-10] MEDS ORDERED: BISACODYL (EC) 5 MG TAB PO ONE ×2 (06:00→08:00)
[2019-06-10] MEDS ORDERED: POLYETHYLENE GLYCOL 3350 119 GM POWDER PO ONE (06:00)
[2019-06-10] MEDS ORDERED: POTASSIUM CHLORIDE (SR) 20 MEQ TAB PO STA (16:12)
--- NOTE | 2019-06-10 16:14 | PN ---
Date/Time of Note Date/Time of Note DATE: 06/10/19 TIME: 16:13 Assessment/Plan VTE Prophylaxis Risk score (from Ns)>0 risk: 2 SCD applied (from [facility] [place]): Yes Pharmacological prophylaxis: NA/contraindicated Pharm contraindication: bleeding Lines/Catheters IV Catheter Type (from [facility]): Peripheral IV Assessment/Plan Hospital Course 43-year-old male with a history of hypertension, type 2 diabetes, dyslipidemia, alcohol abuse, possible cirrhosis who initially presented to [facility] complaining of bright red blood per rectum. 1. Rectal bleeding / Hematochezia -Initial Ct concerning for colitis, repeat here shows diffuse lymphadenopathy but normal bowels -planned for colonoscopy later today, CEA wnl 2. Elevated transaminases, most likely 2/2 alcoholic liver disease: Patient is aware of this from the past and actually has been seeing GI for this -Hepatitis with elevated transaminases and hyperbilirubinemia -CT with moderate fatty liver, also seen on [facility] concerning also for hepatocellular disease -Planned for MRCP per GI, still pendign 3. Hypertension: BP is in acceptable range 4. Diabetes: Insulin while in-house 5. Alcohol Abuse: "quit" a week ago. discussed importance of abstinence, reinforced 6. Dyslipidemia: Hold statin given elevated liver enzymes 7. Chronic hypochromic microcytic anemia Plan: Continue abx appreciate GI review and recs replete electrolytes further interventions per clinical course. Result Diagram: 06/10/19 0440 06/10/19 0440 Results 24hrs Laboratory Tests Test 06/09/19 17:52 06/09/19 20:38 06/09/19 23:40 06/10/19 04:09 Bedside Glucose 122 111 103 85 Test 06/10/19 04:40 06/10/19 08:29 06/10/19 13:04 White Blood Count 7.6 Red Blood Count 4.44 L Hemoglobin 10.3 L Hematocrit 34.5 L Mean Corpuscular 77.7 L Volume Mean Corpuscular 23.2 L Hemoglobin Mean Corpuscular 29.9 L Hemoglobin Concent Red Cell 22.4 H Distribution Width Platelet Count 191 Mean Platelet Volume 10.1 Immature 1.200 H Granulocytes % Neutrophils % 65.9 Lymphocytes % 25.4 Monocytes % 6.7 Eosinophils % 0.4 Basophils % 0.4 Nucleated Red Blood 0.0 Cells % Immature 0.090 H Granulocytes # Neutrophils # 5.0 Lymphocytes # 1.9 Monocytes # 0.5 Eosinophils # 0.0 Basophils # 0.0 Nucleated Red Blood 0.0 Cells # Erythrocyte 19 H Sedimentation Rate Sodium Level 143 Potassium Level 3.3 L Chloride Level 107 Carbon Dioxide Level 28 Anion Gap 8 Blood Urea Nitrogen 5 L Creatinine 1.02 Est Glomerular > 60 Filtrat Rate mL/min Glucose Level 85 Calcium Level 8.4 Magnesium Level 1.6 L C-Reactive Protein 1.4 H Carcinoembryonic 2.5 Antigen Bedside Glucose 104 111 Subjective 24 Hr Interval Summary Free Text/Dictation no further rectal bleed, no new issues Exam/Review of Systems Exam Vitals Vital Signs Date Temp Pulse Resp B/P (MAP) Pulse Ox O2 O2 Flow FiO2 Time Delivery Rate 06/10/19 99.8 71 18 151/93 93 Room Air 15:44 (112) 06/08/19 30 22:01 Intake and Output 06/09/19 06/09/19 06/10/19 1414:59 22:59 06:59 IntakeIntake Total 600 ml 1006.8 ml 240 ml BalanceBalance 600 ml 1006.8 ml 240 ml Exam Constitutional: alert, oriented, obese Head: atraumatic, normocephalic Neck: non-tender, supple Respiratory: clear to auscultation Cardiovascular: regular rate and rhythm Gastrointestinal: S/ NT / ND / +BS Extremities: no edema, good radial pulses Results Results 24hrs Laboratory Tests Test 06/09/19 17:52 06/09/19 20:38 06/09/19 23:40 06/10/19 04:09 Bedside Glucose 122 111 103 85 Test 06/10/19 04:40 06/10/19 08:29 06/10/19 13:04 White Blood Count 7.6 Red Blood Count 4.44 L Hemoglobin 10.3 L Hematocrit 34.5 L Mean Corpuscular 77.7 L Volume Mean Corpuscular 23.2 L Hemoglobin Mean Corpuscular 29.9 L Hemoglobin Concent Red Cell 22.4 H Distribution Width Platelet Count 191 Mean Platelet Volume 10.1 Immature 1.200 H Granulocytes % Neutrophils % 65.9 Lymphocytes % 25.4 Monocytes % 6.7 Eosinophils % 0.4 Basophils % 0.4 Nucleated Red Blood 0.0 Cells % Immature 0.090 H Granulocytes # Neutrophils # 5.0 Lymphocytes # 1.9 Monocytes # 0.5 Eosinophils # 0.0 Basophils # 0.0 Nucleated Red Blood 0.0 Cells # Erythrocyte 19 H Sedimentation Rate Sodium Level 143 Potassium Level 3.3 L Chloride Level 107 Carbon Dioxide Level 28 Anion Gap 8 Blood Urea Nitrogen 5 L Creatinine 1.02 Est Glomerular > 60 Filtrat Rate mL/min Glucose Level 85 Calcium Level 8.4 Magnesium Level 1.6 L C-Reactive Protein 1.4 H Carcinoembryonic 2.5 Antigen Bedside Glucose 104 111 Medications Medication Current Medications Dextrose/Sodium Chloride 1,000 ml @ 120 mls/hr Q8H20M IV Last administered on 06/09/19at 13:51; Admin Dose 120 MLS/HR; Start 06/08/19 at 01:37 IV Flush (NS 3 ml) 3 ml PER PROTOCOL IV ; Start 06/08/19 at 02:00 Ondansetron HCl (Zofran Inj) 4 mg Q6H PRN IV NAUSEA/VOMITING; Start 06/08/19 at 02:00 Morphine Sulfate (morphine) 2 mg Q4H PRN IV .SEVERE PAIN 7-10 Last administered on 06/09/19at 16:16; Admin Dose 2 MG; Start 06/08/19 at 02:00 Pantoprazole (Protonix Iv) 40 mg DAILY@0600,1800 IV Last administered on 06/09/19at 18:19; Admin Dose 40 MG; Start 06/08/19 at 06:00 Albuterol/ Ipratropium (Duoneb) 3 ml Q2H RESP THERAPY PRN HHN SHORTNESS OF BREATH; Start 06/08/19 at 02:00 Diagnostic Test (Pha) (Accu-Chek) 1 ea 02 XX ; Start 06/08/19 at 02:00 Miscellaneous Information 1 ea NOTE XX ; Start 06/08/19 at 02:00 Glucose (Glutose) 15 gm Q15M PRN PO DECREASED GLUCOSE; Start 06/08/19 at 02:00 Glucose (Glutose) 22.5 gm Q15M PRN PO DECREASED GLUCOSE; Start 06/08/19 at 02:00 Dextrose (D50w Syringe) 25 ml Q15M PRN IV DECREASED GLUCOSE; Start 06/08/19 at 02:00 Dextrose (D50w Syringe) 50 ml Q15M PRN IV DECREASED GLUCOSE; Start 06/08/19 at 02:00 Glucagon (Glucagen) 1 mg Q15M PRN IM DECREASED GLUCOSE; Start 06/08/19 at 02:00 Glucose (Glutose) 15 gm Q15M PRN BUCCAL DECREASED GLUCOSE; Start 06/08/19 at 02:00 Piperacillin Sod/ Tazobactam Sod 100 ml @ 200 mls/hr Q6H IVPB Last administered on 06/10/19at 08:45; Admin Dose 200 MLS/HR; Start 06/09/19 at 03:00 Insulin Aspart (Novolog Insulin Pen) NOVOLOG *MILD* ALGORI... Q4 SC ; Start 06/10/19 at 01:00 TALA AMADO Jun 10, 2019 16:14
[2019-06-10] MEDS ORDERED: LIDOCAINE 2% (SDV) 5 ML INJ ONE (16:17)
[2019-06-10] MEDS ORDERED: PROPOFOL 40 ML ONE (16:17)
[2019-06-10] MEDS ORDERED: FENTAnyl 50 MCG/ML VIAL ONE (16:17)
--- NOTE | 2019-06-10 16:47 | PAC ---
Date/Time of Note Date/Time of Note DATE: 06/10/19 TIME: 16:47 Post-Anesthesia Notes Post-Anesthesia Note Last documented vital signs Vital Signs Date Temp Pulse Resp B/P (MAP) Pulse Ox O2 O2 Flow FiO2 Time Delivery Rate 06/10/19 99.8 71 18 151/93 93 Room Air 15:44 (112) 06/08/19 30 22:01 Activity: WNL Respiratory function: WNL Cardiovascular function: WNL Mental status: Baseline Pain reasonably controlled: Yes Hydration appropriate: Yes Nausea/Vomiting absent: Yes Michael Chacon M.D. Jun 10, 2019 16:47
[2019-06-10] MEDS ORDERED: MAGNESIUM SULFATE 2 GM/50 ML 50 ML IVPB ONE (17:30)
[2019-06-10] MEDS: morphine 2 MG INJ IV PRN (20:58)
[2019-06-11 01:45] VITALS: BP 137/83; PULSE 73; RESP 18
[2019-06-11] MEDS: ACCU-CHEK XX SCH (02:00)
[2019-06-11] MEDS: PIPER-TAZO 3.375 GM IV (PMX) 100 ML IVPB SCH ×2 (04:02→08:13)
[2019-06-11] MEDS: PANTOPRAZOLE 40 MG INJ IV SCH (06:16)
[2019-06-11] MEDS: INSULIN ASPART [NOVOLOG] 3 ML PEN SC SCH ×2 (07:00→11:30)
[2019-06-11 07:58] VITALS: BP 140/85; PULSE 70; RESP 18
--- NOTE | 2019-06-11 09:44 | PN ---
Date/Time of Note Date/Time of Note DATE: 06/11/19 TIME: 09:36 Assessment/Plan VTE Prophylaxis Risk score (from Ns)>0 risk: 2 SCD applied (from Ns): No SCD contraindicated: low risk/ambulating Pharmacological prophylaxis: NA/contraindicated Pharm contraindication: liver dx Lines/Catheters IV [facility] Peripheral IV Assessment/Plan Hospital Course Summary Assessment and Plan: Assessment: Hematochezia Colonoscopy 06/10/2019 4 mm sigmoid polyp removed Moderate-sized internal hemorrhoids Otherwise normal Transaminitis with direct hyperbilirubinemia -Likely alcoholic hepatitis will order PT/INR-to assess discriminant function-treatment function less than 32 therefore not recommended to start methylprednisolone therapy EGD 06/10/2019 Moderate gastritis. Rule out H. pylori, biopsies obtained. Otherwise normal EGD. History of excessive alcohol use 3-4 shots per day x10 years -Alcoholic beverage was Saturday06/06/19 HTN Dyslipidemia Diabetes mellitus Obesity BMI- 38.4 Plan: MRCP-she refused MRCP, liver ultrasound was obtained -Both liver ultrasound and CT abdomen pelvis show no bile duct dilation High-fiber diet Repeat colonoscopy in 5 years Patient to follow-up with his well head pumper Dr. Cj Godoy after discharge D/c planning per Hospitalist Patient seen in collaboration with Dr. Hedrick Subjective: Course reviewed with nursing staff Patient interviewed and examined All labs, imaging and other results reviewed The patient resting in bed. No further evidence of GI bleed. No complaints of nausea vomiting or abdominal pain. I discussed results of EGD and colonoscopy patient verbalized understanding. Exam PHYSICAL EXAMINATION: GENERAL: Alert & oriented x 3, in no acute distress SKIN: No lesions HEAD: Normocephalic, atraumatic, no tenderness. EYES: Pupils equal reactive to light and accommodation, no discharge. EARS/NOSE AND THROAT: Ears normal. NECK: Supple, no masses. CHEST: Inspection within normal limits. CARDIOVASCULAR: Heart: Regular rate and rhythm RESPIRATORY: Lungs clear to auscultation and percussion, no wheezing, no rubs GASTROINTESTINAL AND LIVER: Abdomen: Soft, non tenderness,normoactive bowel sounds. Rectal: Deferred. EXTREMITIES: No cyanosis, clubbing or edema. Result Diagram: 06/11/19 0454 06/11/19 0449 Results 24hrs Laboratory Tests Test 06/10/19 13:04 06/10/19 18:01 06/10/19 20:47 06/11/19 04:49 Bedside Glucose 111 100 110 Sodium Level 141 Potassium Level 3.6 Chloride Level 106 Carbon Dioxide Level 28 Anion Gap 7 Blood Urea Nitrogen 5 L Creatinine 0.95 Est Glomerular > 60 Filtrat Rate mL/min Glucose Level 83 Calcium Level 8.4 Test 06/11/19 04:54 06/11/19 04:55 06/11/19 07:44 White Blood Count 6.0 # Red Blood Count 4.42 L Hemoglobin 10.3 L Hematocrit 34.4 L Mean Corpuscular 77.8 L Volume Mean Corpuscular 23.3 L Hemoglobin Mean Corpuscular 29.9 L Hemoglobin Concent Red Cell 23.0 H Distribution Width Platelet Count 168 Mean Platelet Volume 10.5 H Immature 1.800 H Granulocytes % Neutrophils % 56.5 Lymphocytes % 30.4 Monocytes % 8.9 Eosinophils % 1.7 Basophils % 0.7 Nucleated Red Blood 0.3 H Cells % Immature 0.110 H Granulocytes # Neutrophils # 3.4 Lymphocytes # 1.8 Monocytes # 0.5 Eosinophils # 0.1 Basophils # 0.0 Nucleated Red Blood 0.0 Cells # Total Bilirubin 3.7 H Direct Bilirubin 2.50 H Indirect Bilirubin 1.2 H Aspartate Amino 103 H Transf (AST/SGOT) Alanine 134 H Aminotransferase (AL T/SGPT) Alkaline Phosphatase 259 H Total Protein 6.7 Albumin 3.2 L Bedside Glucose 100 Exam/Review of Systems Exam Vitals Vital Signs Date Temp Pulse Resp B/P (MAP) Pulse Ox O2 O2 Flow FiO2 Time Delivery Rate 06/11/19 98.7 70 18 140/85 95 Room Air 07:58 (103) 06/08/19 30 22:01 Intake and Output 06/10/19 06/10/19 06/11/19 1515:00 23:00 07:00 IntakeIntake Total 480 ml 920 ml BalanceBalance 480 ml 920 ml Results Results 24hrs Laboratory Tests Test 06/10/19 13:04 06/10/19 18:01 06/10/19 20:47 06/11/19 04:49 Bedside Glucose 111 100 110 Sodium Level 141 Potassium Level 3.6 Chloride Level 106 Carbon Dioxide Level 28 Anion Gap 7 Blood Urea Nitrogen 5 L Creatinine 0.95 Est Glomerular > 60 Filtrat Rate mL/min Glucose Level 83 Calcium Level 8.4 Test 06/11/19 04:54 06/11/19 04:55 06/11/19 07:44 White Blood Count 6.0 # Red Blood Count 4.42 L Hemoglobin 10.3 L Hematocrit 34.4 L Mean Corpuscular 77.8 L Volume Mean Corpuscular 23.3 L Hemoglobin Mean Corpuscular 29.9 L Hemoglobin Concent Red Cell 23.0 H Distribution Width Platelet Count 168 Mean Platelet Volume 10.5 H Immature 1.800 H Granulocytes % Neutrophils % 56.5 Lymphocytes % 30.4 Monocytes % 8.9 Eosinophils % 1.7 Basophils % 0.7 Nucleated Red Blood 0.3 H Cells % Immature 0.110 H Granulocytes # Neutrophils # 3.4 Lymphocytes # 1.8 Monocytes # 0.5 Eosinophils # 0.1 Basophils # 0.0 Nucleated Red Blood 0.0 Cells # Total Bilirubin 3.7 H Direct Bilirubin 2.50 H Indirect Bilirubin 1.2 H Aspartate Amino 103 H Transf (AST/SGOT) Alanine 134 H Aminotransferase (AL T/SGPT) Alkaline Phosphatase 259 H Total Protein 6.7 Albumin 3.2 L Bedside Glucose 100 Medications Medication Current Medications IV Flush (NS 3 ml) 3 ml PER PROTOCOL IV ; Start 06/08/19 at 02:00 Ondansetron HCl (Zofran Inj) 4 mg Q6H PRN IV NAUSEA/VOMITING; Start 06/08/19 at 02:00 Morphine Sulfate (morphine) 2 mg Q4H PRN IV .SEVERE PAIN 7-10 Last administered on 06/10/19at 20:58; Admin Dose 2 MG; Start 06/08/19 at 02:00 Pantoprazole (Protonix Iv) 40 mg DAILY@0600,1800 IV Last administered on 06/11/19at 06:16; Admin Dose 40 MG; Start 06/08/19 at 06:00 Albuterol/ Ipratropium (Duoneb) 3 ml Q2H RESP THERAPY PRN HHN SHORTNESS OF BREATH; Start 06/08/19 at 02:00 Diagnostic Test (Pha) (Accu-Chek) 1 ea 02 XX ; Start 06/08/19 at 02:00 Miscellaneous Information 1 ea NOTE XX ; Start 06/08/19 at 02:00 Glucose (Glutose) 15 gm Q15M PRN PO DECREASED GLUCOSE; Start 06/08/19 at 02:00 Glucose (Glutose) 22.5 gm Q15M PRN PO DECREASED GLUCOSE; Start 06/08/19 at 02:00 Dextrose (D50w Syringe) 25 ml Q15M PRN IV DECREASED GLUCOSE; Start 06/08/19 at 02:00 Dextrose (D50w Syringe) 50 ml Q15M PRN IV DECREASED GLUCOSE; Start 06/08/19 at 02:00 Glucagon (Glucagen) 1 mg Q15M PRN IM DECREASED GLUCOSE; Start 06/08/19 at 02:00 Glucose (Glutose) 15 gm Q15M PRN BUCCAL DECREASED GLUCOSE; Start 06/08/19 at 02:00 Piperacillin Sod/ Tazobactam Sod 100 ml @ 200 mls/hr Q6H IVPB Last administered on 06/11/19at 08:13; Admin Dose 200 MLS/HR; Start 06/09/19 at 03:00 Insulin Aspart (Novolog Insulin Pen) NOVOLOG *MILD* ALGORI... AC MEALS AND BEDTIME SC ; Start 06/10/19 at 17:30 ELEANOR CURRY Jun 11, 2019 09:44
--- NOTE | 2019-06-11 12:14 | DS ---
Date/Time of Note Date/Time of Note DATE: 06/11/19 TIME: 12:13 Discharge Summary Admission/Discharge Info Admit Date/Time Jun 07, 2019 at 22:36 Discharge Date/Time Discharge Diagnosis 43-year-old male with a history of hypertension, type 2 diabetes, dyslipidemia, alcohol abuse, possible cirrhosis who initially presented to [facility] complaining of bright red blood per rectum. 1. Rectal bleeding / Hematochezia -Initial Ct concerning for colitis, repeat here shows diffuse lymphadenopathy but normal bowels -planned for colonoscopy later today, CEA wnl 2. Elevated transaminases, most likely 2/2 alcoholic liver disease: Patient is aware of this from the past and actually has been seeing GI for this -Hepatitis with elevated transaminases and hyperbilirubinemia -CT with moderate fatty liver, also seen on [facility] concerning also for hepatocellular disease -Planned for MRCP per GI, still pendign 3. Hypertension: BP is in acceptable range 4. Diabetes: Insulin while in-house 5. Alcohol Abuse: "quit" a week ago. discussed importance of abstinence, reinforced 6. Dyslipidemia: Hold statin given elevated liver enzymes 7. Chronic hypochromic microcytic anemia Plan: Continue abx appreciate GI review and recs replete electrolytes further interventions per clinical course. Patient Condition: Stable Consults GI: Orlando Hedrick MD , . Hospital Course 43-year-old male who had presented to emergency room with hematochezia. He was transferred to us from outside emergency room due to insurance reasons. Patient has a history of alcoholic liver disease and transaminitis. Regarding his rectal bleeding he underwent upper and lower endoscopy that showed gastritis and internal hemorrhoids. Regarding his transaminitis and hyperbilirubinemia, it was determined that this is likely due to alcoholic hepatitis superimposed on moderate steatosis and chronic alcohol use. He was counseled extensively on the need to quit alcohol abuse to prevent further liver damage. Patient did not reach criteria for steroid therapy for hepatitis. At this time he is doing much better, hematochezia has resolved. He does have a chronic anemia but did not require transfusion. His liver function has remained stable. He has been cleared for discharge from GI standpoint. His comorbidities were also managed as per medical records, he recommended to follow-up as outpatient with his primary care doctor within the next 1 to 2 weeks and with his routine psych therapist for routine follow-up. He has verbalized understanding. Again alcohol cessation counseling was reinforced. . Home Meds Reported Medications Metformin Hcl (Glucophage) 500 Mg Tablet, 500 MG PO WITH MEALS, #90 TAB 06/07/19 Simvastatin* (Zocor*) 40 Mg Tablet, 40 MG PO QHS, #30 TAB 06/07/19 Atenolol* (Tenormin*) 50 Mg Tablet, 50 MG PO DAILY, #30 TAB 06/07/19 Amlodipine Besylate* (Norvasc*) 10 Mg Tablet, 10 MG PO DAILY, TAB 06/07/19 Aspirin* (Aspirin* Chew) 81 Mg Tab.chew, 81 MG PO DAILY, TAB.CHEW 06/07/19 Follow-up Plan He recommended to follow-up as outpatient with his primary care doctor within the next 1 to 2 weeks and with his routine psych therapist for routine follow-up. He has verbalized understanding. Again alcohol cessation counseling was reinforced. . Primary Care Provider Care Physician No Primary Time spent on discharge: > 30 minutes Pending Labs Laboratory Tests Test 06/10/19 13:04 06/10/19 18:01 06/10/19 20:47 06/11/19 04:49 Bedside 111 100 110 Glucose mg/dL (70-220) mg/dL (70-220) mg/dL (70-220) Sodium Level 141 mmol/L (135-14 4) Potassium 3.6 Level mmol/L (3.5-5. 1) Chloride Level 106 mmol/L (97-110 ) Carbon Dioxide 28 Level mmol/L (21-31) Anion Gap 7 (5-13) Blood Urea 5 mg/dl (7-20) Nitrogen Creatinine 0.95 mg/dl (0.61-1. 24) Est Glomerular > 60 Filtrat mL/min (>60) Rate mL/min Glucose Level 83 mg/dl (70-220) Calcium Level 8.4 mg/dl (8.4-10. 2) Test 06/11/19 04:54 06/11/19 04:55 06/11/19 07:44 White Blood 6.0 Count 10^3/ul (4.8-10 .8) Red Blood 4.42 Count 10^6/ul (4.70-6 .10) Hemoglobin 10.3 g/dl (14.0-18.0 ) Hematocrit 34.4 % (42.0-52.0) Mean 77.8 Corpuscular fl (82.0-101.0) Volume Mean 23.3 Corpuscular pg (29.0-33.0) Hemoglobin Mean 29.9 Corpuscular g/dl (32.0-37.0 Hemoglobin Conc ) ent Red Cell 23.0 Distribution % (11.5-14.5) Width Platelet Count 168 10^3/UL (140-41 5) Mean Platelet 10.5 Volume fl (7.4-10.4) Immature 1.800 Granulocytes % % (0.001-0.429) Neutrophils % 56.5 % (39.0-77.0) Lymphocytes % 30.4 % (15.0-51.0) Monocytes % 8.9 % (0.0-11.0) Eosinophils % 1.7 % (0.0-7.0) Basophils % 0.7 % (0.0-2.0) Nucleated Red 0.3 Blood Cells % /100WBC (0.0-0. 0) Immature 0.110 Granulocytes # 10^3/ul (0.0-0. 031) Neutrophils # 3.4 10^3/ul (1.6-7. 5) Lymphocytes # 1.8 10^3/ul (0.8-2. 9) Monocytes # 0.5 10^3/ul (0.3-0. 9) Eosinophils # 0.1 10^3/ul (0.0-0. 5) Basophils # 0.0 10^3/ul (0.0-0. 1) Nucleated Red 0.0 Blood Cells # 10^3/ul (0.0-0. 0) Total 3.7 Bilirubin mg/dl (0.2-1.3 ) Direct 2.50 Bilirubin mg/dl (0.00-0. 20) Indirect 1.2 Bilirubin mg/dl (0-1.1) Aspartate Amino 103 Transf (AST/SGO IU/L (15-46) T) Alanine 134 Aminotransferas IU/L (13-69) e (ALT/SGPT) Alkaline 259 Phosphatase IU/L (42-121) Total Protein 6.7 g/dl (6.1-8.1) Albumin 3.2 g/dl (3.3-4.9) Bedside 100 Glucose mg/dL (70-220) INGRIS,BOLATITO M. Jun 11, 2019 12:14
--- NOTE | 2019-06-11 12:18 | PDOCDIS ---
Discharge Instructions DIAGNOSIS Discharge Diagnosis 43-year-old male with a history of hypertension, type 2 diabetes, dyslipidemia, alcohol abuse, possible cirrhosis who initially presented to [facility] complaining of bright red blood per rectum. 1. Rectal bleeding / Hematochezia: Resolved -Likely secondary to colitis with diffuse lymphadenopathy superimposed on chronic internal hemorrhoids and chronic alcohol use and liver disease -Colitis also seems to have resolved very well 2. Elevated transaminases, most likely 2/2 alcoholic liver disease: Patient is aware of this from the past and actually has been seeing GI for this -Hepatitis with elevated transaminases and hyperbilirubinemia -CT with moderate fatty liver, also seen on [facility] concerning also for hepatocellular disease -Patient refused MRCP 3. Hypertension: Controlled 4. Diabetes: Fair control 5. Alcohol Abuse: "quit" a week ago. discussed importance of abstinence, reinforced 6. Dyslipidemia: Hold statin given elevated liver enzymes 7. 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 He has verbalized understanding. Again alcohol cessation counseling was reinforced. . 1. Followup with your primary doctor within the next 1-2 weeks. If you don't have one please let someone know, we can give you resources that may help you pick one. You may call Dr Jian Junior's office. he's accepting new patients Name, Degree: Jian Junior MD Specialty: Internal Medicine Comments: Office Address: [address] [place] [id number] Office Office Rpk may also call your insurance company to assign one to you. 2. Review your medication list with your nurse before leaving and if you need new prescriptions please let your nurse know. 3. I may have made changes to your home medications or given you new prescriptions, please let your primary doctor know as well. 4. Stay compliant with your medications and report any side effects to your PCP or pharmacist. 5. Return to the ER if you have any concerns and cannot reach your doctors or call your insurance company, they usually have a nurse that can help you. 6. You CANNOT drink any more alcohol. If you have already stopped, Good for you! !!. It is however an ongoing process. Further alcohol use will only worsen you pancreas and / or your liver. You should have been given resources to help you with quitting alcohol, if not please let someone know before you leave. Please use these resources and contact us or your PCP if you still have questions or concerns. TALA AMADO. Jun 11, 2019 12:18
[2019-06-11] MEDS ORDERED: PSYL283P27 PO (12:22)
[2019-06-11] MEDS ORDERED: CIPR500T4 PO (12:22)
[2019-06-11] MEDS ORDERED: LACT1CAP57 PO (12:22)
[2019-06-11] MEDS ORDERED: METR500T PO (12:22)
[2019-06-11] MEDS ORDERED: HYDR25SU23 PR (12:33)
[2019-06-11 13:56] VITALS: BP 143/80; PULSE 77; RESP 18
== END 2019-06-11 17:15 | disposition home or self-care (01) | DRG 378 ==
LOC: 2NE 22:36
PROVIDERS: ADMIT Internal Medicine; ATTEND Family Medicine
PROC: 0DB68ZX Excision of Stomach, Via Natural or Artificial Opening Endoscopic, Diagnostic (ICD-10-PCS; principal; 2019-06-10 18:00)
PROC: 0DBN8ZX Excision of Sigmoid Colon, Via Natural or Artificial Opening Endoscopic, Diagnostic (ICD-10-PCS; 2019-06-10 18:00)
DX: K62.5 Hemorrhage of anus and rectum (principal); K51.90 Ulcerative colitis, unspecified, without complications; K92.1 Melena; E11.8 Type 2 diabetes mellitus with unspecified complications; F10.10 Alcohol abuse, uncomplicated; Y90.9 Presence of alcohol in blood, level not specified; R59.1 Generalized enlarged lymph nodes; I10 Essential (primary) hypertension; E78.5 Hyperlipidemia, unspecified; D50.9 Iron deficiency anemia, unspecified; K70.10 Alcoholic hepatitis without ascites; K76.0 Fatty (change of) liver, not elsewhere classified; E83.39 Other disorders of phosphorus metabolism; E83.42 Hypomagnesemia; E87.6 Hypokalemia; E66.9 Obesity, unspecified; Z68.38 Body mass index [BMI] 38.0-38.9, adult; K29.70 Gastritis, unspecified, without bleeding; K63.5 Polyp of colon; K64.8 Other hemorrhoids
CPT/HCPCS: 74177; 76705; 80048; 80053; 80061; 80076; 82270; 82378; 82962; 83036; 83540; 83735; 84100; 85025; 85610; 85651; 86140; 86706; 86803; 87045; 87075; 87340; 88305; 88312; 94660; C9113; J1815; J2270; J2543; J2930; J3010; J3475; J3480; J7042; J7050; Q9967